=== PATIENT | male | born 1980 | race Caucasian/White ===

== ENCOUNTER 2023-08-24 18:07 | Observation (INO) ==
[2023-08-24] MEDS: LORazepam 1 MG/1 ML SYR ED Inj Use IM STA (18:35)
[2023-08-24] MEDS: HALOPERIDOL LACTATE 5 MG/ML 1 ML VIAL IM STA (18:35)
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
[2023-08-24 18:49] LABS: Basophils # (auto) 0.05 K/uL (0.00-0.20); Basophils % (auto) 0.4 %; Hematocrit (blood only) 43.3 % (42.0-52.0); Hemoglobin 15.8 g/dl (14.0-18.0); Immature Granulocytes # (auto) 0.07 K/uL (0.01-0.20); Immature Granulocytes % (auto) 0.5 %; Lymphocytes # (auto) 1.37 K/uL (1.20-3.40); Lymphocytes % (auto) 10.3 %; Mean Corpuscular Hemoglobin 31.7 pg (25.0-34.0); Mean Corpuscular Hgb Conc 36.5 g/dL (32.0-36.0); Mean Corpuscular Volume 86.9 fL (80.0-100.0); Mean Platelet Volume 9.5 fL (9.4-12.4); Monocytes # (auto) 0.73 K/uL (0.11-0.59); Monocytes % (auto) 5.5 %; Neutrophils # (auto) 11.03 K/uL (1.40-6.50); Neutrophils % (auto) 83.3 %; Platelet Count 281 K/uL (130-400); RDW Coefficient of Variation 11.9 % (11.5-14.5); RDW Standard Deviation 37.7 fL (36.4-46.3); Red Blood Count 4.98 M/uL (4.70-6.10); White Blood Count 13.25 K/ul (4.8-10.8)
[2023-08-24] MEDS: LORazepam 1 MG/1 ML SYR ED Inj Use ONE (18:59)
[2023-08-24] MEDS: HALOPERIDOL LACTATE 5 MG/ML 1 ML VIAL ONE (18:59)
[2023-08-24 19:07] LABS: Alanine Aminotransferase 13 U/L (7-52); Albumin Globulin Ratio 1.5 (0.9-2); Albumin Level 5.1 gm/dl (3.4-5.0); Alkaline Phosphatase 57 U/L (34-104); Anion Gap 21 (3-11); Aspartate Aminotransferase 20 U/L (13-39); BUN Creatinine Ratio 9.5 (10-20); Blood Urea Nitrogen 18 mg/dl (6-23); Calcium 11.1 mg/dl (8.6-10.3); Carbon Dioxide 16 mmol/L (21-32); Chloride 104 mmol/L (98-107); Est GFR (African American) 49.6 ml/min; Est GFR (Non-African American) 42.8 ml/min; Globulin 3.4 gm/dl (2.5-4.0); Glucose 181 mg/dl (70-99(Fasting)); Potassium 3.2 mmol/L (3.5-5.1); Sodium 141 mmol/L (136-145); Total Protein 8.5 gm/dl (6.0-8.3)
[2023-08-24 19:22] LABS: Thyroid Stimulating Hormone 1.955 uIu/ml (0.300-4.500)
[2023-08-24] MEDS: OPTIRAY 320 100ml IV ONE (20:05)
[2023-08-24 20:16] LABS: Acetaminophen < 3 ug/ml (10-30); Salicylate < 3.0 mg/dl (3.0-30)
[2023-08-24 20:29] LABS: Appearance Urine Clear (Clear); Bilirubin Urine Negative (Negative); Blood Urine Negative (Negative); Color Urine Yellow; Glucose Urine UA Negative (Negative); Ketones Urine 1+ (Negative); Leukocyte Esterase Urine Negative (Negative); Nitrite Urine Negative (Negative); Protein Urine Negative (Negative); Specific Gravity Urine 1.021 (1.000-1.030); Urobilinogen Urine Negative (Negative); pH Urine 6.5 (4.5-7.5)
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
--- NOTE | 2023-08-24 20:52 | CT Scan Report ---
Exam(s): CT CHEST With Contrast IV Amt: 92 ml optiray 320 EXAM: CT Chest With Intravenous Contrast CLINICAL HISTORY: Reason for exam: Trauma. TECHNIQUE: Axial computed tomography images of the chest with intravenous contrast. CTDI is 30.69 mGy and DLP is 1205.68 mGy-cm. Automated exposure control was utilized for the study. A dose lowering technique was utilized adhering to the principles of ALARA. CONTRAST: Patient received 92 ml optiray 320 of IV contrast COMPARISON: No relevant prior studies available. FINDINGS: Lungs: Unremarkable. No mass. No consolidation. Pleural space: Unremarkable. No pneumothorax. No significant effusion. Heart: Unremarkable. No cardiomegaly. No significant pericardial effusion. No significant coronary artery calcifications. Bones/joints: Unremarkable. No acute fracture. No dislocation. Soft tissues: Unremarkable. Vasculature: Unremarkable. No thoracic aortic aneurysm. Lymph nodes: Unremarkable. No enlarged lymph nodes. Adrenals: RIGHT adrenal nodule, referred to the concomitant CT scan of the abdomen pelvis. IMPRESSION: No acute findings in the chest. Electronically signed by: Vik King MD 08/24/23 20:52 PM
[2023-08-24 21:20] LABS: Amphetamines+Metham, Urine Neg (Neg); Barbiturates, Urine Neg (Neg); Benzodiazepine, Urine Neg (Neg); Cocaine, Urine Neg (Neg); MDMA (Ecstacy), Urine Neg (Neg); Marijuana, Urine Pos (Neg); Methadone, Urine Neg (Neg); Opiate, Urine Neg (Neg); Phencyclidine, Urine Neg (Neg)
[2023-08-24] MEDS: SODIUM CHLORIDE 0.9% 1,000 ML IV ONE (21:28)
[2023-08-24 21:53] LABS: Base Excess VBG -0.7 mEq/L; HCO3 VBG 23 mmol/L; Oxygen Saturation VBG 98.5 %; PCO2 VBG 36 mmHg (38-50); PO2 VBG 93 mmHg; pH VBG 7.42 (7.36-7.41)
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
[2023-08-24] MEDS: LACTATED RINGER'S 1,000 ML IV SCH (22:49)
[2023-08-24] MEDS: POTASSIUM CHLORIDE / WTR 10 MEQ/100 ML PLCT IV ONE (22:49)
[2023-08-24] MEDS ORDERED: MELATONIN 3 MG TAB PO PRN (23:19)
[2023-08-24] MEDS ORDERED: LORazepam 0.5 MG in SYRINGE 0.25 ML IV PRN (23:19)
[2023-08-24] MEDS ORDERED: ACETAMINOPHEN 325 MG TAB PO PRN (23:19)
[2023-08-25 00:39] LABS: BUN Creatinine Ratio 12.6 (10-20); Creatinine Clr Calc Pharmacy 69.9 ml/min; Est GFR (African American) 65.1 ml/min; Est GFR (Non-African American) 56.2 ml/min; Potassium 3.7 mmol/L (3.5-5.1)
[2023-08-25 01:47] LABS: Base Excess VBG 0 mEq/L; HCO3 VBG 25 mmol/L; PCO2 VBG 43 mmHg (38-50); PO2 VBG 55 mmHg; pH VBG 7.38 (7.36-7.41)
[2023-08-25 01:53] LABS: Basophils # (auto) 0.03 K/uL (0.00-0.20); Basophils % (auto) 0.4 %; Eosinophils # (auto) 0.02 K/uL (0.00-0.50); Eosinophils % (auto) 0.2 %; Hematocrit (blood only) 37.3 % (42.0-52.0); Hemoglobin 13.1 g/dl (14.0-18.0); Immature Granulocytes # (auto) 0.02 K/uL (0.01-0.20); Immature Granulocytes % (auto) 0.2 %; Lymphocytes # (auto) 2.11 K/uL (1.20-3.40); Lymphocytes % (auto) 25.1 %; Mean Corpuscular Hemoglobin 31.3 pg (25.0-34.0); Mean Corpuscular Hgb Conc 35.1 g/dL (32.0-36.0); Mean Platelet Volume 9.3 fL (9.4-12.4); Monocytes # (auto) 0.66 K/uL (0.11-0.59); Monocytes % (auto) 7.8 %; Neutrophils # (auto) 5.58 K/uL (1.40-6.50); Neutrophils % (auto) 66.3 %; Platelet Count 177 K/uL (130-400); RDW Standard Deviation 38.8 fL (36.4-46.3); Red Blood Count 4.19 M/uL (4.70-6.10); White Blood Count 8.42 K/ul (4.8-10.8)
[2023-08-25 02:13] LABS: BUN Creatinine Ratio 13.3 (10-20); Calcium 9.3 mg/dl (8.6-10.3); Creatinine Clr Calc Pharmacy 73.9 ml/min; Est GFR (African American) 69.5 ml/min; Magnesium 2.2 mg/dl (1.7-2.4); Potassium 3.7 mmol/L (3.5-5.1)
[2023-08-25 07:52] LABS: Estimated Average Glucose 97 mg/dl
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
--- NOTE | 2023-08-26 21:29 | Electrocardiogram Report ---
Test Reason : Blood Pressure : / mmHG Vent. Rate : 159 BPM Atrial Rate : 000 BPM P-R Int : 000 ms QRS Dur : 076 ms QT Int : 322 ms P-R-T Axes : 000 067 035 degrees QTc Int : 523 ms Possible Sinus tachycardia Nonspecific ST abnormality Prolonged QT Abnormal ECG No previous ECGs available Confirmed by Theodore Dial ([id number]) on 08/26/2023 9:28:45 PM Referred By: REFERRED SELF Confirmed By:Theodore Dial
--- NOTE | 2023-08-26 21:29 | Electrocardiogram Report ---
Test Reason : Blood Pressure : / mmHG Vent. Rate : 099 BPM Atrial Rate : 099 BPM P-R Int : 148 ms QRS Dur : 080 ms QT Int : 356 ms P-R-T Axes : 067 085 029 degrees QTc Int : 456 ms Normal sinus rhythm Normal ECG When compared with ECG of 24-AUG-2023 18:24, Vent. rate has decreased BY [address] no longer depressed in Inferior leads ST no longer depressed in Anterolateral leads Confirmed by Theodore Dial ([id number]) on 08/26/2023 9:29:00 PM Referred By: REFERRED SELF Confirmed By:Theodore Dial
[2023-08-27 15:32] LABS: Marijuana Quant, GCMS Urine 196 ng/mL (<5)
== END 2023-08-25 14:58 | disposition home or self-care (01) | DRG 885 ==
LOC: ED 18:07 → INTOOBSV 22:28 → EDINP 22:28 → SUATTDRO 22:28 → 3E 08-25 07:31